=== PATIENT | female | born 1975 | race Caucasian/White ===

== ENCOUNTER 2018-02-16 08:02 | Emergency (ER) | payer SELFPAY ==
[~2018-02-16] VITALS: Ht 170.2 cm; Wt 81.8 kg
[~2018-02-16 08:02] MED LIST: COLACE100 MG PO; IBUPROFEN600 MG PO; PERCOCET 5-3251 TAB PO; PRENATAL COMPLE1 TAB PO
[2018-02-16 08:08] VITALS: Ht 170.2 cm; Wt 81.8 kg
[2018-02-16] MEDS ORDERED: LINZESS290 MCG PO (08:11)
[2018-02-16] MEDS ORDERED: COLACE100 MG PO (08:12)
[2018-02-16] MEDS ORDERED: ATIVAN0.5 MG PO (08:12)
[2018-02-16 08:34] LABS: BASOPHILS 0.2 % (0-2); EOSINOPHILS 1.9 % (0-7); HEMATOCRIT 37.7 % (36.0-48.0); HEMOGLOBIN 12.6 g/dL (12-16); IMMATURE GRANULOCYTES 0.2 % (0-5); LYMPHOCYTES 31.4 % (15-50); MCH 28.1 pg (26.0-34.0); MCHC 33.4 g/dL (31.0-37.0); MCV 84.2 fL (80.0-100.0); MEAN PLATELET VOLUME 9.9 fL (7.4-10.4); MONOCYTES 6.2 % (2-11); NEUTROPHILS 60.1 % (40-80); PLATELET COUNT 240 10x3/uL (130-400); RBC 4.48 10x6/uL (4.00-5.40); RDW 13.9 % (11.5-14.5); WBC 8.8 10x3/uL (4.8-10.8)
[2018-02-16 08:45] LABS: APPEARANCE CLEAR (CLEAR); BILIRUBIN NEGATIVE (NEGATIVE); COLOR YELLOW (YELLOW); GLUCOSE NEGATIVE (NEGATIVE); KETONE NEGATIVE (NEGATIVE); NITRITE NEGATIVE (NEGATIVE); PROTEIN NEGATIVE (NEGATIVE); UROBILINOGEN NORMAL (NORMAL)
[2018-02-16 08:48] LABS: ALBUMIN 3.6 g/dL (3.4-5.0); ANION GAP 9.1 mmol/L (8-16); BILIRUBIN - TOTAL 0.15 mg/dL (0.2-1.3); CALCIUM 8.1 mg/dL (8.5-10.1); CARBON DIOXIDE 26.2 mmol/L (21.0-32.0); CREATININE - SERUM 0.9 mg/dL (0.6-1.3); POTASSIUM - SERUM 4.3 mmol/L (3.5-5.1); PROTEIN - SERUM 7.2 g/dL (6.4-8.2)
[2018-02-16 10:52] VITALS: BP 139/90
== END 2018-02-16 10:53 | disposition home or self-care (01) ==
LOC: D.ER 08:02
PROVIDERS: Emergency Medicine
DX: K59.09 Other constipation (principal); I10 Essential (primary) hypertension

== ENCOUNTER → 2018-02-22 12:26 | Outpatient (CLI) | payer MEDICARE ==
[2018-02-16 08:08] VITALS: BMI 28.2
[~2018-02-22 12:26] MED LIST changes: +ATIVAN0.5 MG PO; +LINZESS290 MCG PO
== END | disposition home or self-care (01) ==
LOC: D.RAD 12:26
DX: K59.00 Constipation, unspecified (principal)

== ENCOUNTER → 2018-05-14 15:41 | Outpatient (CLI) | payer MEDICARE ==
[2018-02-16 08:08] VITALS: BMI 28.2
== END | disposition home or self-care (01) ==
LOC: D.CT 15:41
DX: K92.1 Melena (principal); R10.9 Unspecified abdominal pain; K59.00 Constipation, unspecified

== ENCOUNTER 2019-03-16 18:19 | Emergency (ER) | payer MEDICARE ==
[~2019-03-16] VITALS: Ht 170.2 cm; Wt 83.2 kg
[2019-03-16 18:39] VITALS: Ht 170.2 cm; Wt 83.2 kg
[2019-03-16] MEDS ORDERED: ZOLOFT50 MG PO (18:45)
[2019-03-16] MEDS ORDERED: LEVOXYL50 MCG PO (18:45)
[2019-03-16 19:09] LABS: BASOPHILS 0.4 % (0-2); EOSINOPHILS 2.2 % (0-7); HEMATOCRIT 35.2 % (36.0-48.0); HEMOGLOBIN 11.6 g/dL (12-16); IMMATURE GRANULOCYTES 0.1 % (0-5); LYMPHOCYTES 40.7 % (15-50); MCH 26.9 pg (26.0-34.0); MCV 81.7 fL (80.0-100.0); MEAN PLATELET VOLUME 9.6 fL (7.4-10.4); MONOCYTES 5.8 % (2-11); NEUTROPHILS 50.8 % (40-80); PLATELET COUNT 278 10x3/uL (130-400); RBC 4.31 10x6/uL (4.00-5.40); RDW 13.6 % (11.5-14.5); WBC 10.3 10x3/uL (4.8-10.8)
[2019-03-16 19:18] LABS: APTT 30.3 SECONDS (22.8-39.4); PROTIME 12.7 SECONDS (11.6-15.0)
[2019-03-16 19:33] LABS: ALBUMIN 3.8 g/dL (3.4-5.0); ALKALINE PHOSPHATASE 90 U/L (46-116); ALT (SGPT) 16 U/L (10-68); BILIRUBIN - TOTAL 0.29 mg/dL (0.2-1.3); CALC OSMOLALITY 278 mosm/kg (275-300); CALCIUM 8.9 mg/dL (8.5-10.1); CARBON DIOXIDE 25.7 mmol/L (21.0-32.0); CHLORIDE - SERUM 105 mmol/L (98-107); CREATININE - SERUM 0.8 mg/dL (0.6-1.3); GLUCOSE 84 mg/dL (74-106); POTASSIUM - SERUM 3.5 mmol/L (3.5-5.1); PROTEIN - SERUM 7.4 g/dL (6.4-8.2); SODIUM 141 mmol/L (136-145); UREA NITROGEN 11 mg/dL (7-18); eGFR NON AFRICAN AMERICAN 82 mL/min (90-120)
[2019-03-16 20:08] LABS: CKMB 0.9 U/L (0.0-3.6); CREATINE KINASE 102 UL (21-215)
[2019-03-16 20:10] LABS: TROPONIN-I < 0.017 ng/mL (0.000-0.060)
[2019-03-16 22:24] VITALS: BP 139/97
== END 2019-03-16 22:24 | disposition home or self-care (01) ==
LOC: D.ER 18:19
PROVIDERS: Family Medicine
DX: R07.89 Other chest pain (principal); I10 Essential (primary) hypertension